=== PATIENT | female | born 2000 | race Caucasian/White ===

== ENCOUNTER 2021-06-30 13:56 | Emergency (ER) | payer OTHER, SELFPAY ==
--- NOTE | 2021-06-30 14:00 | ED.GENADULT ---
HPI - General Adult General Chief complaint: Upper Respiratory Infection Stated complaint: SORE THROAT Time Seen by Provider: 06/30/21 13:59 Source: patient Mode of arrival: ambulatory Limitations: no limitations History of Present Illness HPI narrative: 20-year-old female patient presents to the [facility] with complaints of sore throat that started yesterday. Patient states she took some nighttime allergy medication last night for her symptoms. Denies fevers, body aches or chills. Patient states she has had a little bit of congestion but denies any other symptoms. Patient is fully vaccinated against Covid. Related Data Home Medications Medication Instructions Recorded Confirmed No Home Medications 06/30/21 06/30/21 Allergies Allergy/AdvReac Type Severity Reaction Status Date / Time Sulfa (Sulfonamide Allergy Other Verified 06/30/21 14:20 Antibiotics) Review of Systems Review of Systems: CONSTITUTIONAL: Denies fever, chills, or sweats. EYES: Denies visual changes, redness, or discharge. ENT: Denies rhinorrhea, positive congestion, positive sore throat, denies otalgia. CARDIOVASCULAR: Denies chest pain, palpitations, or edema. RESPIRATORY: Denies cough or dyspnea. GASTROINTESTINAL: Denies abdominal pain, nausea, vomiting, or diarrhea. GENITOURINARY: Denies dysuria or hematuria. SKIN: Denies rash or itching. MUSCULOSKELETAL: Denies back pain, joint pain, or myalgia. NEUROLOGIC: Denies headache, numbness, or weakness. PSYCHIATRIC: Denies anxiety or depression. PMFSH Comments At the time of my signature I agree with nursing past medical history, surgical, social, and family history. There is no relevant family history pertinent to the presenting complaint. Exam Narrative: GENERAL: Well-appearing, well-nourished, and in no acute distress. HEAD: Normocephalic, atraumatic. EYES: PERRLA and EOMI. ENT: Nares with erythema and edema noted bilaterally, no rhinorrhea or epistaxis. Mucous membranes moist. Posterior pharynx with no erythema, tonsil enlargement, exudates or lesions present. NECK: Supple. No lymphadenopathy CHEST: Clear to auscultation. No respiratory distress. HEART: Regular rate and rhythm. No murmur heard. Normal peripheral pulses. ABDOMEN: Soft, nontender, nondistended, normal active bowel sounds. EXTREMITIES: Normal range of motion. No edema. SKIN: Warm, dry, no rash. NEURO: No focal deficits. Alert and oriented x3. Course Vital Signs Vital signs: Vital Signs Temperature 36.9 C 06/30/21 14:24 Pulse Rate 97 06/30/21 14:24 Respiratory Rate 12 06/30/21 14:24 Blood Pressure 127/67 06/30/21 14:24 Pulse Oximetry 100 06/30/21 14:24 Temperature 36.9 C 06/30/21 14:24 Pulse Rate 97 06/30/21 14:24 Respiratory Rate 12 06/30/21 14:24 Blood Pressure 127/67 06/30/21 14:24 Pulse Oximetry 100 06/30/21 14:24 Vital signs reviewed Medical Decision Making Differential Diagnosis Differential Diagnosis: Differential diagnosis: Viral pharyngitis, pharyngitis, group A strep, infectious mononucleosis, gonococcal pharyngitis, exudative pharyngitis, oral candidiasis. Chronic allergies, postnasal drip, GERD, abscess formation, but glottitis, retropharyngeal abscess formation, or airway obstruction. Notify patient that she is negative today for strep. We will go ahead and send this off to the lab and if it does come back positive in the next couple of days we will call her and put her on antibiotics. Discussed with patient I would encourage her to continue taking [id number] antihistamines to help with her symptoms and if her symptoms worsen she may want to consider getting tested for Covid. Patient verbalized understanding denies any other questions or concerns at this time. Vital Signs Vital Signs: Vital Signs Temperature 36.9 C 06/30/21 14:24 Pulse Rate 97 06/30/21 14:24 Respiratory Rate 12 06/30/21 14:24 Blood Pressure 127/67 06/30/21 14:24 Pulse Oximetry
[2021-06-30 14:24] VITALS: BP 127/67; PULSE 97; RESP 12; TEMP 36.9; O2SAT 100
== END 2021-06-30 14:45 | disposition home or self-care (01) ==
PROVIDERS: Emergency Provider Nurse Practitioner Family; PCP Pediatrics Adolescent Medicine
DX: J02.8 Acute pharyngitis due to other specified organisms (principal)
CPT/HCPCS: 87081; 87880; 99203; G0463

== ENCOUNTER 2022-02-01 10:06 | Emergency (ER) | payer OTHER, SELFPAY ==
--- NOTE | 2022-02-01 10:44 | ED.URI ---
HPI - URI/Sore Throat General Chief Complaint: Upper Respiratory Infection Stated Complaint: sorethroat,congestion Source: patient Mode of arrival: ambulatory Limitations: no limitations History of Present Illness HPI Narrative: Ms. Salmeron is a 21-year-old female patient presenting to the clinic today with complaints of cough, congestion, eye discomfort and drainage, possible fever, and body aches. She reports that her father recently had the flu. No known exposure to Covid or strep. MD elicited complaint: fever, cough, sore throat, rhinorrhea and nasal congestion Related Data Allergies Allergy/AdvReac Type Severity Reaction Status Date / Time Sulfa (Sulfonamide Allergy Other Verified 02/01/22 11:08 Antibiotics) Review of Systems Review of Systems: Pertinent positives per HPI. Patient denies any rash, headache, visual changes, dizziness, shortness of breath, chest pain, palpitations, nausea, vomiting, diarrhea, constipation, abdominal pain, or any urinary issues. PMFSH Comments At the time of my signature, I reviewed and agree with the nursing past medical, surgical, social, and family history. There is no relevant family history pertinent to the patient complaint. Exam Narrative: General: Well-developed, well nourished, in no apparent distress Head: Normocephalic, atraumatic Eyes: Pupils equally round and reactive to light bilaterally, EOM intact, sclera and conjunctive injected, yellow mucopurulent discharge, eyelids swelling Ears: TMs intact and clear, ear canals clear, no drainage, grossly hearing normal. Nose: Nares patent, green nasal discharge, moderate inflammation, mild sinus tenderness. Mouth: Oral pharynx without lesions or masses, good dentition, MMM. Postnasal drip, oropharynx red Neck: Supple, trachea midline, no enlargement of anterior or posterior cervical nodes, no thyroid masses or goiter palpable. Cardio: Regular rate and rhythm, s1 and s2 normal, no murmur appreciated. Resp: Clear to auscultation bilaterally, no rhonchi, rales, wheezing or rubs Course Course Emergency Course: Portions of this record may have been created with voice recognition software. Level of Care: Express Care Visit Vital Signs Vital signs: Vital Signs Temperature 37.0 C 02/01/22 10:48 Pulse Rate 75 02/01/22 10:48 Respiratory Rate 18 02/01/22 10:48 Blood Pressure 140/89 02/01/22 10:48 Pulse Oximetry 100 02/01/22 10:48 Temperature 37.0 C 02/01/22 10:48 Pulse Rate 75 02/01/22 10:48 Respiratory Rate 18 02/01/22 10:48 Blood Pressure 140/89 02/01/22 10:48 Pulse Oximetry 100 02/01/22 10:48 Vital signs reviewed MDM - URI/Sore Throat MDM Narrative Medical decision making narrative: Upon assessment of patient she is resting on the exam table. She appears to be mild to moderately ill. She has redness and swelling to her eyes and conjunctive a with mucopurulent yellow discharge. Covid testing, strep testing, and influenza testing were all negative in the clinic. I suspect she has a viral syndrome with acute conjunctivitis. I will treat her with tobramycin eyedrops and discussed supportive measures for viral syndrome. Patient voiced understanding. Differential Diagnosis Differential diagnosis: Likely upper respiratory infection, otitis media, sinusitis, viral infection, bronchitis, influenza and pharyngitis Lab Data Labs: Lab Results 02/01/22 Range/Units 11:35 POC SARS CoV-2 Ag Negative (Negative) Influenza A Screen Negative Reference Range: Negative Influenza B Screen Negative Reference Range: Negative Strep Screen Presumptive Negative *(Reference Range: Negative)* Discharge Plan Discharge Clinical Impression: Acute viral syndrome Conjunctivitis Qualifiers: Conjunctivitis type: acute Ac
[2022-02-01 10:48] VITALS: BP 140/89; PULSE 75; RESP 18; TEMP 37; O2SAT 100
== END 2022-02-01 11:52 | disposition home or self-care (01) ==
PROVIDERS: Emergency Provider Nurse Practitioner Family
DX: B34.9 Viral infection, unspecified (principal); H10.33 Unspecified acute conjunctivitis, bilateral; Z20.822 Contact with and (suspected) exposure to COVID-19
CPT/HCPCS: 87081; 87426; 87804; 87880; 99213; C9803; G0463

== ENCOUNTER 2022-02-17 08:14 | Emergency (ER) | payer OTHER, SELFPAY ==
[2022-02-17 08:26] VITALS: BP 120/77; PULSE 106; RESP 16; TEMP 37.7; O2SAT 97
[2022-02-17 08:27] VITALS: BP 120/77; PULSE 106; RESP 16; TEMP 37.7; O2SAT 97
--- NOTE | 2022-02-17 08:27 | ED.URI ---
HPI - URI/Sore Throat General Chief Complaint: Upper Respiratory Infection Stated Complaint: Cough Time Seen by Provider: 02/17/22 08:35 Source: patient, RN notes reviewed and old records reviewed Mode of arrival: ambulatory Limitations: no limitations History of Present Illness HPI Narrative: 21-year-old female presents to the [facility] with complaints of cough, sinus pain, pressure, rhinorrhea ear discomfort and a sore throat for at least 2 weeks. Was seen and evaluated on February 01 and diagnosed with an upper respiratory viral infection. She was also diagnosed with conjunctivitis which she reports is better. Patient denies any fevers, nausea, vomiting, diarrhea, chest pain or abdominal pain. At the time did test negative for strep, COVID, flu, has no concerns due to her being fully vaccinated MD elicited complaint: cough, rhinorrhea, nasal congestion and sinus pain Related Data Allergies Allergy/AdvReac Type Severity Reaction Status Date / Time Sulfa (Sulfonamide Allergy Other Verified 02/17/22 08:27 Antibiotics) Review of Systems Review of Systems: All systems reviewed & are unremarkable except as noted in HPI and below Constitutional: Constitutional: Reports no additional constitutional complaints, Denies chills, Denies fever(s) and Denies headache(s) Eyes: Eyes: Reports no additional eye complaints ENT: Reports as per HPI, Denies vertigo, Denies dizziness, Reports facial pain, Denies headache(s), Denies hoarseness, Denies lip swelling, Reports nasal congestion, Reports sinus pressure, Reports sore throat and Denies throat swelling Cardiovascular: Cardiovascular: Reports no additional cardiovascular complaints, Denies chest pain, Denies syncope, Denies rapid heart rate and Denies dyspnea Respiratory: Respiratory: Reports as per HPI, Denies chest congestion, Reports cough, Denies dyspnea and Denies wheezing Gastrointestinal: Gastrointestinal: Reports no additional gastrointestinal complaints, Denies abdominal pain, Denies diarrhea, Denies nausea and Denies vomiting Musculoskeletal: Musculoskeletal: Reports no additional musculoskeletal complaints and Denies numbness Integumentary/Breasts: Skin/Breast: Reports system reviewed and no additional complaints, except as docu Neurologic: Reports system reviewed and no additional complaints, except as documented, Denies vertigo, Denies dizziness, Denies syncope, Denies headache(s), Denies focal weakness and Denies numbness Psychiatric: Psychiatric: Reports no additional psychiatric complaints Allergic/Immunologic: Allergic/Immunologic: Reports no additional allergic/immunologic complaints and Denies wheezing PMFSH Past Medical History Medical History (Updated 02/17/22 @ 09:35 by Hilda Lyles APRN) Patient denies medical problems Surgical History Surgical History (Updated 02/17/22 @ 09:36 by Hilda Lyles APRN) No significant past surgical history Social History Social History (Updated 02/17/22 @ 09:36 by Hilda Lyles APRN) Gender identity (if verbalized by the patient): Female Comments At the time of my signature, I reviewed and agree with the nursing past medical, surgical, social, and family history. There is no relevant family history pertinent to the patient complaint. Exam Const: General: cooperative, healthy appearing, no acute distress, well developed and alert Nutritional Appearance: well nourished Orientation/consciousness: patient oriented x3 Limitations: no limitations HENMT: Head: normal to inspection Ears: external ears normal, EAC's normal and TM abnormal dull on the right and with fluid behind the TM bilateral; not erythematous and with no loss of landmarks General nose exam: Normal external nose present, Abnormal mucous membranes and turbinates present boggy bilateral and erythematous bilateral and Nasal discharge present clear Face and sinus: face symmetric and sinus tenderness frontal and maxillary Mouth: Yes Normal oral and [place]
== END 2022-02-17 08:50 | disposition home or self-care (01) ==
PROVIDERS: Emergency Provider Nurse Practitioner
DX: J01.40 Acute pansinusitis, unspecified (principal)
CPT/HCPCS: 99213; G0463